=== PATIENT | female | born 1995 | race Caucasian/White ===

== ENCOUNTER 2021-12-29 09:45 | Outpatient (CLI) | payer BC ==
[2021-12-29 10:21] VITALS: BP 109/66; PULSE 83; RESP 17; TEMP 97.7
--- NOTE | 2021-12-30 07:49 | P.MSEPDOC ---
Presenting Problems - Arrival Data Date of Arrival on Unit: 12/29/21 Time of Arrival on Unit: 09:45 Mode of Transport: Wheelchair - Complaint OB-Reason for Admission/Chief Complaint: Other Comment: pt presented to triage from ER for c/o RLQ pain, pt denies complications with or related concerns, RLQ pain started Wednesday and is reported as intermittent, pt currently reports pain as dull Medical History - Information : 1 Para: 0 Term: 0 : 0 Abortions: Spontaneous or Elective: 0 Number of Living Children: 0 - Gestational Age Gestational Age by ABIOLA (wks/days): 22 Weeks and 6 Days - History Comment: reports marijuana use during Review of Systems - Review of Systems Constitutional: No problems Breast: No problems ENT: No problems Cardiovascular: No problems Respiratory: No problems Gastrointestinal: No problems Genitourinary: No problems Musculoskeletal: No problems Neurological: No problems Skin: No problems Vital Signs - Temperature Temperature: 97.7 F Temperature Source: Temporal Artery Scan - Pulse Right Brachial Pulse Rate: 83 Pulse Assessment Method: Automatic Cuff - Respirations Respiratory Rate: 17 Oxygen Delivery Method: Room Air O2 Sat by Pulse Oximetry: 99 - Blood Pressure Right Arm Blood Pressure: 109/66 Blood Pressure Mean: 80 Blood Pressure Source: Automatic Cuff Medical Screen Scoring - Assessment - Baby A Baseline FHR: 145 Physician Notification - Physician Notified Physician Notified Date: 12/29/21 Physician Notified Time: 10:06 Physician: Celestino Soliz New Order Received: Yes (transport to ER for evaluation) Maternal Triage Index - Non-Urgent/Priority 4 Non-Urgent Priority 4: Yes Criteria Met for Priority 4: pt transported to ER for further evaluation Disposition - Disposition OB Disposition: Transfer to other dept./facility Transferred to:: ER Discharge Date: 12/29/21 Discharge Time: 10:15 I agree with the RN Medical Screening Exam: Yes Case reviewed; plan agreed upon as documented in EMR&OBIX.: Yes Diagnosis: PAIN, UNSPECIFIED (Patient presents with right lower quadrant pain. There is no evidence of obstetrical reasons for this therefore patient was transferred to the emergency department for further evaluation.)
== END 2021-12-29 10:15 | disposition home or self-care (01) ==
LOC: FBPOP 09:45
PROVIDERS: ATTEND Obstetrics & Gynecology
DX: O26.892 Other specified pregnancy related conditions, second trimester (principal); R10.31 Right lower quadrant pain; Z3A.22 22 weeks gestation of pregnancy
CPT/HCPCS: 99213

== ENCOUNTER 2021-12-29 10:25 | Emergency (ER) | payer BC ==
[2021-12-29 09:28] VITALS: TEMP 97.9
[2021-12-29] MEDS ORDERED: SODIUM CHLORIDE 0.9% 1,000 ML IV STA (11:13)
[2021-12-29] MEDS ORDERED: SODIUM CHLORIDE 0.9% 500 ML 500 ML IV STA (11:13)
--- NOTE | 2021-12-29 11:50 | ED ---
General Adult HPI - General Chief complaint: Abdominal Pain Stated complaint: Pain on Rt side,22 weeks Preg Time Seen by Provider: 12/29/21 10:36 Source: patient, RN notes reviewed Mode of arrival: ambulatory Limitations: no limitations - History of Present Illness Initial comments: This is a 26-year-old female presents emergency Department chief complaint right-sided abdominal pain. Patient states she's had 3-4 episodes of sharp stabbing type pain in the right lower quadrant. Patient is A0 currently 22 and 5 days . Patient is following with Dr. Soliz. Patient states that this pain is intermittent and sometimes associated with movement. Patient denies any nausea vomiting diarrhea constipation denies any dysuria patient was gone by labor and delivery with heart tones which were within normal limits, no other further testing was done. - Related Data Allergies Allergy/AdvReac Type Severity Reaction Status Date / Time No Known Allergies Allergy Verified 12/29/21 09:47 Review of Systems ROS Statement: Those systems with pertinent positive or pertinent negative responses have been documented in the HPI. ROS Other: All systems not noted in ROS Statement are negative. Past Medical History Past Medical History: No Reported History Past Psychological History: No Psychological Hx Reported Smoking Status: Never smoker Past Alcohol Use History: None Reported Past Drug Use History: None Reported General Exam Limitations: no limitations General appearance: alert, in no apparent distress Head exam: Present: atraumatic, normocephalic, normal inspection Eye exam: Present: normal appearance, PERRL, EOMI. Absent: scleral icterus, conjunctival injection, periorbital swelling ENT exam: Present: normal exam, normal oropharynx, mucous membranes moist Neck exam: Present: normal inspection. Absent: tenderness, meningismus, lymphadenopathy Respiratory exam: Present: normal lung sounds bilaterally. Absent: respiratory distress, wheezes, rales, rhonchi, stridor Cardiovascular Exam: Present: regular rate, normal rhythm, normal heart sounds. Absent: systolic murmur, diastolic murmur, rubs, gallop, clicks GI/Abdominal exam: Present: soft, normal bowel sounds. Absent: distended, tenderness, guarding, rebound, rigid Course Vital Signs 12/29/21 09:25 Temperature 97.9 F Pulse Rate 81 Respiratory 20 Rate Blood Pressure 116/72 O2 Sat by Pulse 100 Oximetry Medical Decision Making - Medical Decision Making 26-year-old female presented for right-sided intermittent abdominal pain, pelvic pain. Workup is negative this time. I do believe this related to abdominal pain. Patient is currently stable she had clearance from PIPE PRODUCTION WORKER and negative workup in emergency department. Patient discharged in stable condition return parameters discussed. - Lab Data Result diagrams: 12/29/21 11:20 12/29/21 11:20 Lab Results 12/29/21 12/29/21 12/29/21 Range/Units 11:20 11:20 11:20 WBC 7.9 (3.8-10.6) k/uL RBC 3.39 L (3.80-5.40) m/uL Hgb 11.7 (11.4-16.0) gm/dL Hct 34.3 (34.0-46.0) % MCV 101.0 H (80.0-100.0) fL MCH 34.6 (25.0-35.0) pg MCHC 34.2 (31.0-37.0) g/dL RDW 12.8 (11.5-15.5) % Plt Count 119 L (150-450) k/uL MPV 10.2 Neutrophils % 80 % Lymphocytes % 14 % Monocytes % 4 % Eosinophils % 0 % Basophils % 0 % Neutrophils # 6.4 (1.3-7.7) k/uL Lymphocytes # 1.1 (1.0-4.8) k/uL Monocytes # 0.3 (0-1.0) k/uL Eosinophils # 0.0 (0-0.7) k/uL Basophils # 0.0 (0-0.2) k/uL Sodium 137 (137-145) mmol/L Potassium 3.7 (3.5-5.1) mmol/L Chloride 108 H (98-107) mmol/L Carbon Dioxide 25 (22-30) mmol/L Anion Gap 4 mmol/L BUN 7 (7-17) mg/dL Creatinine 0.45 L (0.52-1.04) mg/dL Est GFR (CKD-EPI)AfAm >90 (>60 ml/min/1.73 sqM) Est GFR (CKD-EPI)NonAf >90 (>60 ml/min/1.73 sqM) Glucose 83 (74-99) mg/dL Plasma Lactic Acid Riley (0.7-2.0) mmol/L Calcium 8.8 (8.4-10.2) mg/dL Total Bilirubin 0.1 L (0.2-1.3) mg/dL AST 26 (14-36) U/L ALT 22 (4-34) U/L Alkaline Phosphatase 49 (38-126) U/L Total Protein 6.3 (6.3-8.2) g/dL Albumin 3.6 (3.5-5.0) g/dL Amylase 45 (30-110) U/L Lipase 60 (23-300) U/L Urine Color Colorless Urine Appearance Clear (Clear) Urine pH 7.0 (5.0-8.0) Ur Specific [place] 1.006 (1.001-1.035) Urine Protein Negative (Negative) Urine Glucose (UA) Negative (Negative) Urine Ketones Negative (Negative) Urine Blood Negative (Negative) Urine Nitrite Negative (Negative) Urine Bilirubin Negative (Negative) Urine Urobilinogen <2.0 (<2.0) mg/dL Ur Leukocyte Esterase Negative (Negative) 12/29/21 Range/Units 11:20 WBC (3.8-10.6) k/uL RBC (3.80-5.40) m/uL Hgb (11.4-16.0) gm/dL Hct (34.0-46.0) % MCV (80.0-100.0) fL MCH (25.0-35.0) pg MCHC (31.0-37.0) g/dL RDW (11.5-15.5) % Plt Count (150-450) k/uL MPV Neutrophils % % Lymphocytes % % Monocytes % % Eosinophils % % Basophils % % Neutrophils # (1.3-7.7) k/uL Lymphocytes # (1.0-4.8) k/uL Monocytes # (0-1.0) k/uL Eosinophils # (0-0.7) k/uL Basophils # (0-0.2) k/uL Sodium (137-145) mmol/L Potassium (3.5-5.1) mmol/L Chloride (98-107) mmol/L Carbon Dioxide (22-30) mmol/L Anion Gap mmol/L BUN (7-17) mg/dL Creatinine (0.52-1.04) mg/dL Est GFR (CKD-EPI)AfAm (>60 ml/min/1.73 sqM) Est GFR (CKD-EPI)NonAf (>60 ml/min/1.73 sqM) Glucose (74-99) mg/dL Plasma Lactic Acid Riley 0.8 (0.7-2.0) mmol/L Calcium (8.4-10.2) mg/dL Total Bilirubin (0.2-1.3) mg/dL AST (14-36) U/L ALT (4-34) U/L Alkaline Phosphatase (38-126) U/L Total Protein (6.3-8.2) g/dL Albumin (3.5-5.0) g/dL Amylase (30-110) U/L Lipase (23-300) U/L Urine Color Urine Appearance (Clear) Urine pH (5.0-8.0) Ur Specific [place] (1.001-1.035) Urine Protein (Negative) Urine Glucose (UA) (Negative) Urine Ketones (Negative) Urine Blood (Negative) Urine Nitrite (Negative) Urine Bilirubin (Negative) Urine Urobilinogen (<2.0) mg/dL Ur Leukocyte Esterase (Negative) Disposition Clinical Impression: Round ligament pain Disposition: HOME SELF-CARE Condition: Stable Instructions (If sedation given, give patient instructions): Abdominal Pain in (ED) Additional Instructions: Please return to the Emergency Department if symptoms worsen or any other co ncerns. Is patient prescribed a controlled substance at d/c from ED?: No Referrals: Veronica Abdul MD [Primary Care Provider] - 1-2 days Time of Disposition: 12:30
[2021-12-29 11:58] LABS: ALT 22 U/L (4-34); AST 26 U/L (14-36); African American GFR (CKD) >90 (>60 ml/min/1.73 sqM); Albumin 3.6 g/dL (3.5-5.0); Alkaline Phosphatase 49 U/L (38-126); Amylase 45 U/L (30-110); Anion Gap 4 mmol/L; Blood Urea Nitrogen 7 mg/dL (7-17); Calcium 8.8 mg/dL (8.4-10.2); Carbon Dioxide 25 mmol/L (22-30); Chloride 108 mmol/L (98-107); Glucose 83 mg/dL (74-99); Lipase 60 U/L (23-300); Non-African American GFR(CKD) >90 (>60 ml/min/1.73 sqM); Potassium 3.7 mmol/L (3.5-5.1); Sodium 137 mmol/L (137-145); Total Bilirubin 0.1 mg/dL (0.2-1.3); Total Protein 6.3 g/dL (6.3-8.2)
--- NOTE | 2021-12-29 12:03 | US ---
EXAMINATION TYPE: US pelvic complete DATE OF EXAM: 12/29/2021 COMPARISON: NONE CLINICAL HISTORY: RLQ pain. Patient is 22 weeks with RLQ pain, ER PA wanted right ovary to b e assessed. Did modified pelvic US. TECHNIQUE: TA. Transabdominal sonographic images of the pelvis were acquired. EXAM MEASUREMENTS: Uterus: enlarged due to status Right Ovary: 2.0 x 2.4 x 2.0 cm Left Ovary: 2.4 x 1.7 x 1.2cm cm 1. Uterus: enlarged gravid UT 2. Endometrium: N/A 3. Right Ovary: wnl measures 2 x 2 x 2.4 cm 4. Left Ovary: wnl measures 2.4 x 1.2 cm 5. Bilateral Adnexa: wnl 6. Posterior cul-de-sac: wnl IMPRESSION: No acute process. Viable intrauterine
[2021-12-29 12:06] LABS: Appearance,Urine Clear (Clear); Bilirubin,Urine Negative (Negative); Blood,Urine Negative (Negative); Color,Urine Colorless; Glucose,Urine (UA) Negative (Negative); Ketones,Urine Negative (Negative); Leukocyte Esterase,Urine Negative (Negative); Nitrite,Urine Negative (Negative); Protein,Urine Negative (Negative); Specific Gravity,Urine 1.006 (1.001-1.035); Urobilinogen,Urine <2.0 mg/dL (<2.0)
[2021-12-29 12:24] LABS: Basophils % (A) 0 %; Eosinophils % (A) 0 %; HCT 34.3 % (34.0-46.0); HGB 11.7 gm/dL (11.4-16.0); Lymphocytes # (A) 1.1 k/uL (1.0-4.8); Lymphocytes % (A) 14 %; MCH 34.6 pg (25.0-35.0); MCHC 34.2 g/dL (31.0-37.0); Mean Platelet Volume 10.2; Monocytes # (A) 0.3 k/uL (0-1.0); Monocytes % (A) 4 %; Neutrophils # (A) 6.4 k/uL (1.3-7.7); Neutrophils % (A) 80 %; Platelet Count 119 k/uL (150-450); RBC 3.39 m/uL (3.80-5.40); RDW 12.8 % (11.5-15.5); WBC 7.9 k/uL (3.8-10.6)
[2021-12-29 12:43] VITALS: BP 100/59; PULSE 79; RESP 18
== END 2021-12-29 12:45 | disposition home or self-care (01) ==
LOC: EC 10:25
DX: O99.611 Diseases of the digestive system complicating pregnancy, first trimester (principal); R10.2 Pelvic and perineal pain; Z3A.22 22 weeks gestation of pregnancy
CPT/HCPCS: 36415; 76856; 80053; 81003; 82150; 83605; 83690; 85025; 96360; 99284

== ENCOUNTER → 2022-04-02 | Outpatient (CLI) | payer BC ==
[2022-04-02 23:37] LABS: HCT 30.4 % (37.2-46.3); HGB 10.1 g/dL (12.0-15.0); MCH 31.3 pg (27.0-32.0); MCHC 33.2 g/dL (32.0-37.0); MCV 94.1 fL (80.0-97.0); Mean Platelet Volume 12.9 fL (9.5-12.2); NRBC Per 100 WBC 0 /100 WBCS (0.0-0.0); Platelet Count 122 X 10*3/uL (140-440); RBC 3.23 X 10*6/uL (4.10-5.20); RDW 12.5 % (11.5-14.5); WBC 9.32 X 10*3/uL (4.50-10.00)
== END | disposition home or self-care (01) ==
LOC: LABWHC1 15:46
PROVIDERS: ATTEND Obstetrics & Gynecology
DX: D69.6 Thrombocytopenia, unspecified (principal)
CPT/HCPCS: 36415; 85027

== ENCOUNTER 2022-04-27 05:59 | Inpatient (IN) | payer BC ==
--- NOTE | 2022-04-26 13:43 | P.HPOB ---
History of Present Illness H&P Date: 04/26/22 Chief Complaint: Requested induction of labor This patient is a pleasant 26 yr EDC 04/28/2022 estimated gestational age 39 6/7 weeks who presents to L&D for requested induction of labor. was complicated by mild thrombocytopenia (last plts on 04/02 were 122) and 1st trimester marijuana use. Also has been followed for a LGA , however most recent ultrasound showed EFW 7#s15oz (75-90%). 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 pt slow to wake up after wisdom teeth extraction. mother hard time waking up Past Psychological History: No Psychological Hx Reported Smoking Status: Never smoker Past Alcohol Use History: None Reported Past Drug Use History: Marijuana Medications and Allergies Allergies Allergy/AdvReac Type Severity Reaction Status Date / Time No Known Allergies Allergy Verified 12/29/21 09:47 Exam - OBG Physical Exam Abdomen: bowel sounds normal, no diffuse tenderness, no bruit present, no guarding noted, no hepatomegaly, no splenomegaly, no mass Vulva: both: normal Vagina: normal moisture, no discharge Cervix: Cervix 2/50% in office Uterus: enlarged (Fundal height was 39 cm) Results labs: A positive, Rubella Immune, RPR-HIV-RPR neg, Toxo neg, GBS negative, ultrasound 04/14/2022 Vtx 7#15oz (75-90%) Assessment and Plan Assessment: This is a pleasant 26 yr female 39 6/7 weeks gestation who presents to L&D for requested induction of labor. Plan is induction of labor with Pitocin per protocol and anticipate vaginal delivery. (1) 39 weeks gestation of Status: Acute Code(s): Z3A.39 - 39 WEEKS GESTATION OF SNOMED Code(s): 01612081 (2) Elective induction of labor planned Status: Acute Code(s): MFE3354 - SNOMED Code(s): 151738331
[2022-04-27] MEDS ORDERED: OXYTOCIN 30 UNITS/500 ML NS 30 UNIT in SALINE 1 500ML.BAG IV SCH ×2 (06:21→19:15)
[2022-04-27] MEDS ORDERED: TERBUTALINE 1 MG/ML VIAL SQ PRN (06:21)
[2022-04-27] MEDS ORDERED: LIDOCAINE 0.5% (PF) 5 MG/ML (50 ML SDV) SQ PRN (06:21)
[2022-04-27] MEDS: LACTATED RINGERS 1,000 ML IV SCH ×2 (06:30→11:21)
[2022-04-27 06:36] LABS: Basophils % (A) 0 %; Eosinophils # (A) 0.1 k/uL (0-0.7); Eosinophils % (A) 1 %; HGB 11.3 gm/dL (11.4-16.0); Lymphocytes # (A) 1.8 k/uL (1.0-4.8); Lymphocytes % (A) 19 %; MCH 31.6 pg (25.0-35.0); MCHC 34.2 g/dL (31.0-37.0); MCV 92.4 fL (80.0-100.0); Mean Platelet Volume 13.3; Monocytes # (A) 0.4 k/uL (0-1.0); Monocytes % (A) 4 %; Neutrophils # (A) 6.7 k/uL (1.3-7.7); Neutrophils % (A) 72 %; Platelet Count 122 k/uL (150-450); RBC 3.57 m/uL (3.80-5.40); RDW 13.4 % (11.5-15.5); WBC 9.3 k/uL (3.8-10.6)
[2022-04-27 06:59] LABS: Amphetamine Screen,Urine Not Detected (NotDetected); Barbiturate Screen,Urine Not Detected (NotDetected); Benzodiazepines Screen,Urine Not Detected (NotDetected); Cocaine Screen,Urine Not Detected (NotDetected); Methadone Screen, Urine Not Detected (NotDetected); Opiate Screen,Urine Not Detected (NotDetected); Oxycodone Screen, Urine Not Detected (NotDetected); Phencyclidine Screen,Urine Not Detected (NotDetected); Tricyclic Antidepressant,Urine Not Detected (NotDetected); Urn Cannabinoid Scrn Not Detected (NotDetected)
[2022-04-27] MEDS ORDERED: SODIUM CHLORIDE 0.9% 100 ML BAG ONE (11:02)
[2022-04-27] MEDS ORDERED: fentaNYL (PF) 50 MCG/ML 5 ML AMP ONE (11:02)
[2022-04-27] MEDS ORDERED: ROPIVACAINE 5 MG/ML 20 ML AMPULE ONE (11:02)
[2022-04-27] MEDS ORDERED: CITRIC ACID-SODIUM CITRATE 15 ML CUP PO ONE (17:50)
[2022-04-27] MEDS ORDERED: NALBUPHINE 10 MG/ML (1 ML AMP) ONE (18:13)
[2022-04-27] MEDS ORDERED: METHYLERGONOVINE 0.2 MG/ML 1 ML AMP ONE (18:13)
[2022-04-27] MEDS ORDERED: MORPHINE SULFATE (PF) 0.3 MG/0.3 ML SYR ONE (18:13)
[2022-04-27] MEDS ORDERED: ONDANSETRON 4 MG/2 ML VIAL ONE (18:13)
[2022-04-27] MEDS ORDERED: OXYTOCIN 30 UNITS/500 ML NS BAG IV ONE (18:13)
[2022-04-27] MEDS ORDERED: KETOROLAC 15 MG/ML 1 ML VIAL ONE (18:13)
[2022-04-27] MEDS ORDERED: diphenhydrAMINE 25 MG CAP PO PRN (19:02)
[2022-04-27] MEDS ORDERED: ZOLPIDEM 5 MG TAB PO PRN (19:02)
[2022-04-27] MEDS ORDERED: LANOLIN CREAM 5 GM TUBE TOPICAL PRN (19:02)
[2022-04-27] MEDS ORDERED: SIMETHICONE 80 MG CHEWABLE PO PRN (19:02)
[2022-04-27] MEDS ORDERED: ONDANSETRON 4 MG/2 ML VIAL IVP PRN (19:02)
[2022-04-27] MEDS ORDERED: NALOXONE 0.4 MG/ML 1 ML VIAL IV PRN (19:02)
[2022-04-27] MEDS ORDERED: diphenhydrAMINE 50 MG/ML 1 ML VIAL IVP PRN (19:02)
[2022-04-27] MEDS ORDERED: METOCLOPRAMIDE 5 MG/ML 2 ML VIAL IVP PRN (19:02)
--- NOTE | 2022-04-27 19:24 | P.OP ---
Date of Procedure: 04/27/22 Preoperative Diagnosis: #1: 39-6/7 weeks intrauterine . #2: Cephalopelvic dystocia with failure to descent. #3: Large for gestational age Postoperative Diagnosis: Same Procedure(s) Performed: Primary low transverse section Anesthesia: epidural Surgeon: Celestino Soliz Policy Checker #1: Vale Lam Estimated Blood Loss (ml): 1,200 Pathology: none sent Condition: stable Disposition: floor Indications for Procedure: Please see dictated H&P for intimate details of this patient's admission. Brief summary is a pleasant 26-year-old 1 para 0 female 39-6/7 weeks gestation who is admitted to labor and delivery for requested induction of labor. On admission patient is 2 cm dilated has artificial rupture membranes for clear fluid. Labor is induced with Pitocin per protocol. She initially try some nitrous oxide and then gets an epidural for pain control. Patient does progress quite quickly gets to complete pushes for approximately 1 hour unfortunately there is no descent of the head past 0 station. Baby begins developing some And this time we elected proceed with section for delivery. Patient understands this surgery and risks and risks of infection, bleeding, possible injury bowel, bladder, vessels, and/or other organs. All the patient's questions are answered and a written consent is obtained. Operative Findings: This is a vigorous viable male Apgars 9 and 9 delivery time is 1829 hrs. Infant was occiput transverse. weight is 4020 g or 8 lbs. 14 oz. Description of Procedure: This patient has a Garrido catheter placed to straight drain. Patient's epidural is dosed up for sufficient level of surgery. After the appropriate timeout she has abdominal prep and drape. Scalpels and taken and a Pfannenstiel skin incision is then made. A second scalpel is taken down the fascia the fascia scored with a knife. Fascial incision extended bilaterally using the Moore scissors. Fascia is then dissected off the rectus muscles sharply. His muscles are peritoneum identified and entered sharply. Peritoneal incision extended superior and inferior without difficulty. Bladder blade is then placed. Bladder peritoneum was taken sharply off the lower uterine segment. Scalpels and taken a low transverse uterine incision is then made. Using a hemostat I enter the uterine cavity bluntly. There is loss of clear fluid. The uterine incision is extended bluntly. 's head is found to be occiput transverse and easily lifted out of the pelvis. Mouth and nares are bulb suctioned. There is no evidence of a nuchal cord. With fundal pressure we then have deliver the anterior and posterior shoulder and rest this infant's body. This is a vigorous viable male Apgars are 9 and 9 delivery time is 1829 hrs. After delivery of the infant the umbilical cord is doubly clamped and cut is handed off to the nurses in attendance. The placenta is then manually extracted intact. Uterus is then externalized and uterine incision demarcated with Dockery clamps. Uterus quite boggy at this time therefore immediately regular 10 units of Pitocin 0.2 of Methergine. Uterine incision is closed after all debris is removed from the uterine cavity using 0 Vicryl running locked fashion 2 layers. Excellent hemostasis is noted. Bladder peritoneum was then reapproximated using a 3-0 Vicryl. Excess fluid is removed from the abdomen and pelvis. Uterus, tubes, ovaries. Normal for term gestation. Uterus placed back into the abdomen. Parietal peritoneum was then closed in 0 Vicryl running fashion. Rectus muscles reapproximated in 0 Vicryl interrupted fashion. Fascial incision is then closed using 0 PDS. Fascial incision is intact and hemostatic. Subcutaneous tissues and closed using a 3-0 Vicryl. Skin is and closed using citlali. All counts are correct 3. I did express multiple clots and estimated blood loss is approximately 1200 mL. There are no complications. Infant and mother are taken to her birthing suite in satisfactory condition.
[2022-04-27] MEDS ORDERED: HYDROmorphone PCA 10 MG/50 ML BAG IV PRN (19:27)
[2022-04-27 22:06] VITALS: RESP 16
[2022-04-28] MEDS: ACETAMINOPHEN TAB 500 MG TAB PO SCH ×4 (00:42→19:04)
[2022-04-28] MEDS: SENNOSIDES-DOCUSATE SODIUM 1 EACH TAB PO SCH ×3 (00:42→20:33)
[2022-04-28] MEDS: KETOROLAC 15 MG/ML 1 ML VIAL IVP SCH ×4 (00:43→19:06)
[2022-04-28] MEDS: IBUPROFEN 600 MG TAB PO SCH ×5 (00:43→22:34)
[2022-04-28] MEDS: LACTATED RINGERS 1,000 ML IV SCH ×4 (00:43→23:05)
[2022-04-28 05:02] LABS: Basophils % (A) 0 %; Eosinophils % (A) 0 %; HCT 26.5 % (34.0-46.0); Lymphocytes # (A) 1.2 k/uL (1.0-4.8); Lymphocytes % (A) 9 %; MCH 30.6 pg (25.0-35.0); MCHC 32.6 g/dL (31.0-37.0); MCV 93.8 fL (80.0-100.0); Mean Platelet Volume 13.4; Monocytes # (A) 0.5 k/uL (0-1.0); Monocytes % (A) 4 %; Neutrophils # (A) 10.9 k/uL (1.3-7.7); Neutrophils % (A) 85 %; Platelet Count 103 k/uL (150-450); RBC 2.82 m/uL (3.80-5.40); RDW 13.5 % (11.5-15.5); WBC 12.9 k/uL (3.8-10.6)
[2022-04-28 05:03] LABS: HGB 8.6 gm/dL (11.4-16.0)
--- NOTE | 2022-04-28 06:31 | P.PNOBGPC ---
Subjective - Subjective Patient reports: Reports appetite normal, Reports voiding normally, Reports pain well controlled, Reports ambulating normally : doing well Objective - Vital Signs Latest vital signs: Vital Signs Temp Pulse Resp BP Pulse Ox 04/28/22 04:00 98.2 F 90 16 95/59 96 04/28/22 00:00 98.4 F 98 16 107/70 96 04/27/22 21:00 98.3 F 95 16 111/70 97 04/27/22 20:30 98.3 F 91 15 119/77 99 04/27/22 20:00 89 16 121/74 99 04/27/22 19:45 84 16 123/75 100 04/27/22 19:30 97.8 F 91 16 123/74 100 04/27/22 19:27 98 04/27/22 19:15 85 16 123/74 100 04/27/22 19:00 99.0 F 88 16 120/71 Intake and Output 04/27/22 04/27/22 04/28/22 14:59 22:59 06:59 Intake Total 1100 Output Total 250 5610 Balance -250 -4510 Intake: Oral 1100 Output: Urine 250 800 Estimated Blood Loss 3600 Output, Quantitative 1210 Blood Loss Other: # Voids 1 1 - Exam Lungs: bilateral: normal Chest: Normal S1, Normal S2 Extremities: Present: normal Abdomen: Present: normal appearance, soft. Absent: distention, tenderness Incision: Present: normal, dry, intact Uterus: Present: normal, firm - Labs Labs: Abnormal Lab Results - Last 24 Hours (Table) 04/27/22 04/28/22 Range/Units 06:13 04:23 WBC 12.9 H (3.8-10.6) k/uL RBC 3.57 L 2.82 L (3.80-5.40) m/uL Hgb 11.3 L 8.6 L D (11.4-16.0) gm/dL Hct 33.0 L 26.5 L (34.0-46.0) % Plt Count 122 L 103 L (150-450) k/uL Neutrophils # 10.9 H (1.3-7.7) k/uL Assessment and Plan Assessment: Postoperative day #1. Patient is resting without new complaints. Vital signs are stable and she is afebrile. Uterus is firm nontender and her incision is intact and dry. Hemoglobin today was 8.6 which is expected from her operative blood loss from a preoperative of 11.3. 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 Patient will shower later and continue routine postoperative care. (1) 39 weeks gestation of Current Visit: No Status: Acute Code(s): Z3A.39 - 39 WEEKS GESTATION OF SNOMED Code(s): 28886214 (2) Elective induction of labor planned Current Visit: No Status: Acute Code(s): KOC5363 - SNOMED Code(s): 074221877
[2022-04-29] MEDS: ACETAMINOPHEN TAB 500 MG TAB PO SCH ×3 (01:18→08:22)
[2022-04-29] MEDS: IBUPROFEN 600 MG TAB PO SCH (04:35)
--- NOTE | 2022-04-29 06:26 | P.PNOBGPC ---
Subjective - Subjective Patient reports: Reports appetite normal, Reports voiding normally, Reports pain well controlled, Reports ambulating normally : doing well Objective - Vital Signs Latest vital signs: Vital Signs Temp Pulse Resp BP Pulse Ox 04/29/22 00:00 97.6 F 72 16 101/63 98 04/28/22 20:00 98.2 F 76 16 104/65 97 04/28/22 16:00 98.1 F 68 16 107/67 98 04/28/22 12:00 98.3 F 87 16 107/69 97 04/28/22 08:00 97.9 F 79 16 106/66 97 Intake and Output 04/28/22 04/28/22 04/29/22 14:59 22:59 06:59 Output Total 450 400 Balance -450 -400 Output: Urine 450 400 Other: # Voids 1 2 - Exam Lungs: bilateral: normal Chest: Normal S1, Normal S2 Extremities: Present: normal Abdomen: Present: normal appearance, soft. Absent: distention, tenderness Incision: Present: normal, dry, intact Uterus: Present: normal, firm Assessment and Plan Assessment: Postoperative day #2. Patient is resting without complaints and wishes to go home. Vital signs are stable she's afebrile. Uterus is firm nontender and her incision is intact and dry. My impression this is a normal post operative course. Plan is to continue routine care discharge home later today. (1) 39 weeks gestation of Current Visit: No Status: Acute Code(s): Z3A.39 - 39 WEEKS GESTATION OF SNOMED Code(s): 92532728 (2) Elective induction of labor planned Current Visit: No Status: Acute Code(s): [id number] - SNOMED Code(s): 201509597
--- NOTE | 2022-04-29 06:37 | P.DS ---
Providers Date of admission: 04/27/22 05:59 Expected date of discharge: 04/29/22 Attending physician: Celestino Soliz Primary care physician: Stated None - Discharge Diagnosis(es) (1) 39 weeks gestation of Current Visit: No Status: Acute (2) Elective induction of labor planned Current Visit: No Status: Acute Hospital Course: Please see dictated H&P and delivery note on this patient's admission and delivery. Brief summary is a 26-year-old 1 para 0 female 39-6/7 weeks gestation admitted to labor and delivery for induction of labor. Patient's subsequent was on have a primary low transverse section for cephalopelvic dystocia. Postoperatively patient did well. She did have some anemia secondary to blood loss the time of surgery however had normal bleeding . Patient was started on some iron therapy. Patient did very well and on postoperative and 2 felt be stable for discharge home follow up with me in 1 week. Procedures: Induction of labor and primary low transverse section Patient Condition at Discharge: Good Plan - Discharge Summary Discharge Rx Participant: No New Discharge Prescriptions: New Ferrous Sulfate [Iron (65 MG Elemental)] 325 mg PO BID-W/MEALS #60 tab Ibuprofen [Motrin] 600 mg PO Q6H #30 tab oxyCODONE HCL [OxyIR] 5 mg PO Q4HR PRN #18 tab PRN Reason: Pain Scale 4 - 6 Discharge Medication List Ferrous Sulfate [Iron (65 MG Elemental)] 325 mg PO BID-W/MEALS #60 tab 04/29/22 [Rx] Ibuprofen [Motrin] 600 mg PO Q6H #30 tab 04/29/22 [Rx] oxyCODONE HCL [OxyIR] 5 mg PO Q4HR PRN #18 tab 04/29/22 [Rx] Follow up Appointment(s)/Referral(s): Celestino Soliz MD [STAFF PHYSICIAN] - 1 Week (Please see me for your check on 06/09/2022 @10:30Am) Patient Instructions/Handouts: (DC), Iron Deficiency Anemia (GEN), Iron Rich Diet (DC) Activity/Diet/Wound Care/Special Instructions: No heavy lifting or strenuous activity for 6 weeks. No intercourse or anything per vagina for 6 weeks. Please call if any fever, chills, excessive vaginal bleeding, and/or abdominal pain Discharge Disposition: HOME SELF-CARE
[2022-04-29] MEDS ORDERED: FERROUS SULFATE 325 MG TAB PO SCH (07:30)
[2022-04-29 08:26] VITALS: BP 115/79; PULSE 76; TEMP 97.9
[2022-04-29] MEDS: SENNOSIDES-DOCUSATE SODIUM 1 EACH TAB PO SCH (08:26)
== END 2022-04-29 11:15 | disposition home or self-care (01) | DRG 787 ==
LOC: 4FBP 05:59
PROVIDERS: ADMIT Obstetrics & Gynecology; ATTEND Obstetrics & Gynecology
PROC: 4A0HXCZ Measurement of Products of Conception, Cardiac Rate, External Approach (ICD-10-PCS; 2022-04-27)
PROC: 3E033VJ Introduction of Other Hormone into Peripheral Vein, Percutaneous Approach (ICD-10-PCS; 2022-04-27)
PROC: 10907ZC Drainage of Amniotic Fluid, Therapeutic from Products of Conception, Via Natural or Artificial Opening (ICD-10-PCS; 2022-04-27)
PROC: 10D00Z1 Extraction of Products of Conception, Low, Open Approach (ICD-10-PCS; principal; 2022-04-27 18:15)
DX: O32.4XX0 Maternal care for high head at term, not applicable or unspecified (principal); O36.63X0 Maternal care for excessive fetal growth, third trimester, not applicable or unspecified; O72.1 Other immediate postpartum hemorrhage; O99.12 Other diseases of the blood and blood-forming organs and certain disorders involving the immune mechanism complicating childbirth; O98.52 Other viral diseases complicating childbirth; D50.0 Iron deficiency anemia secondary to blood loss (chronic); A60.09 Herpesviral infection of other urogenital tract; D69.6 Thrombocytopenia, unspecified; O90.81 Anemia of the puerperium; O66.0 Obstructed labor due to shoulder dystocia; Z37.0 Single live birth; Z3A.39 39 weeks gestation of pregnancy
CPT/HCPCS: 80306; 85025; 86850; 86900; 86901

== ENCOUNTER → 2023-06-02 | Outpatient (CLI) | payer BC ==
--- NOTE | 2023-06-02 07:34 | US ---
EXAMINATION TYPE: US pelvic complete DATE OF EXAM: 06/02/2023 COMPARISON: NONE CLINICAL INDICATION: Female, 27 years old with history of N93.9 ABNORMAL UTERINE AND VAGINAL BLEEDING , UNSPE; Patient states passing a large concerning clot two menses prior. No pain. Hx x 1 year ago TECHNIQUE: Transabdominal (TA). Transabdominal sonographic images of the pelvis were acquired. Date of LMP: 05/19/2023, EXAM MEASUREMENTS: Uterus: 7.4 x 3.8 x 3.6 cm Endometrial Stripe: 0.7 cm Right Ovary: 2.5 x 1.9 x 2.2 cm Left Ovary: 2.9 x 2.1 x 1.8 cm 1. Uterus: Anteverted wnl 2. Endometrium: wnl 3. Right Ovary: Dominant follicle seen = 1.6 cm 4. Left Ovary: follicles seen 5. Bilateral Adnexa: wnl 6. Posterior cul-de-sac: no free fluid IMPRESSION: No significant abnormality appreciated.
== END | disposition home or self-care (01) ==
LOC: RADUSWWP 06:53
PROVIDERS: ATTEND Family Medicine
DX: N93.9 Abnormal uterine and vaginal bleeding, unspecified (principal)
CPT/HCPCS: 76856